=== PATIENT | male | born 1990 | race Caucasian/White ===

== ENCOUNTER 2023-04-13 18:28 | Inpatient (IN) | payer SELFPAY ==
[2023-04-13] MEDS ORDERED: Ondansetron PF 4 MG/2 ML Vial ONE (19:35)
[2023-04-13 20:06] LABS: #Eosinphils 0.1 10x3/uL (0.0-0.5); #Monocytes 1.2 10x3/uL (0.0-1.1); #Neutrophils 12.2 10x3/uL (1.5-8.4); %Basophils 0.1 % (0.0-2.0); %Eosinophils 0.6 % (0.0-6.0); %Monocytes 8.1 % (0.0-10.0); %Neutrophils 83.7 % (40.0-75.0); Hemoglobin 16.7 g/dL (13.5-17.5); Mean Corpuscular HGB CONC 34.7 g/dL (32.0-36.0); Mean Corpuscular Hemoglobin 30.7 pg (27.0-33.0); Mean Corpuscular Volume 88.4 fl (81.2-95.1); Mean Platelet Volume 10.3 fl (7.4-10.4); Platelet Count 224 10x3/uL (150-450); RBC Distribution Width 13.1 % (11.5-14.5); Red Blood Cell (RBC) Count 5.44 10x6/uL (4.32-5.72); White Blood Cell (WBC) Count 14.5 10x3/uL (3.5-10.5)
[2023-04-13 20:50] LABS: ALT (SGPT) 50 U/L (8-55); AST (SGOT) 182 U/L (5-34); Albumin 4.8 g/dL (3.5-5.0); Alkaline Phosphatase 74 U/L (40-110); Anion Gap 23 mmol/L (10-20); BUN (Urea Nitrogen) 23 mg/dL (8.9-20.6); Bilirubin, Total 1.1 mg/dL (0.2-1.2); Calc. Creatinine Clearance 0 mL/min (70-130); Calcium 9.4 mg/dL (7.8-10.44); Carbon Dioxide 17 mmol/L (22-29); Chloride 104 mmol/L (98-107); Estimated GFR 28; Globulin 3.6 g/dL (2.4-3.5); Glucose 106 mg/dL (70-105); Lipase 26 U/L (8-78); Magnesium 2.2 mg/dL (1.6-2.6); Potassium 4.7 mmol/L (3.5-5.1); Protein, Total 8.4 g/dL (6.0-8.3); Sodium 139 mmol/L (136-145)
[2023-04-13 21:02] LABS: CK (CPK) 13792 U/L (30-200)
[2023-04-13 23:10] LABS: Anion Gap 19 mmol/L (10-20); BUN (Urea Nitrogen) 23 mg/dL (8.9-20.6); Calc. Creatinine Clearance 0 mL/min (70-130); Calcium 8.7 mg/dL (7.8-10.44); Carbon Dioxide 20 mmol/L (22-29); Chloride 103 mmol/L (98-107); Estimated GFR 34; Glucose 103 mg/dL (70-105); Potassium 5.1 mmol/L (3.5-5.1); Sodium 137 mmol/L (136-145)
[2023-04-13 23:32] LABS: CK (CPK) 11554 U/L (30-200)
[2023-04-13] MEDS ORDERED: Acetaminophen 325 MG TAB PO PRN (23:48)
[2023-04-13] MEDS ORDERED: Zolpidem Tartrate 5 MG TAB PO PRN (23:48)
[2023-04-13] MEDS ORDERED: Calcium Carbonate 500 MG ChewTAB PO PRN (23:48)
[2023-04-13] MEDS ORDERED: Senokot S 8.6-50 MG TAB PO PRN (23:48)
[2023-04-13] MEDS ORDERED: Guaifenesin DM 100-10/5 ML UDCUP PO PRN (23:48)
[2023-04-13] MEDS ORDERED: Ondansetron PF 4 MG/2 ML Vial IVP PRN (23:48)
[2023-04-14 01:27] VITALS: BMI 24.4
[2023-04-14 04:09] LABS: #Monocytes 1.3 10x3/uL (0.0-1.1); #Neutrophils 10.2 10x3/uL (1.5-8.4); %Basophils 0.2 % (0.0-2.0); %Eosinophils 0.1 % (0.0-6.0); %Lymphocytes 16.6 % (18.0-47.0); %Monocytes 9.3 % (0.0-10.0); %Neutrophils 73.4 % (40.0-75.0); Hemoglobin 15.7 g/dL (13.5-17.5); Mean Corpuscular HGB CONC 33.8 g/dL (32.0-36.0); Mean Corpuscular Hemoglobin 30.4 pg (27.0-33.0); Mean Corpuscular Volume 90.1 fl (81.2-95.1); Mean Platelet Volume 10.4 fl (7.4-10.4); Platelet Count 197 10x3/uL (150-450); RBC Distribution Width 12.9 % (11.5-14.5); Red Blood Cell (RBC) Count 5.16 10x6/uL (4.32-5.72); White Blood Cell (WBC) Count 13.9 10x3/uL (3.5-10.5)
[2023-04-14 04:30] LABS: ALT (SGPT) 47 U/L (8-55); AST (SGOT) 178 U/L (5-34); Albumin 4.3 g/dL (3.5-5.0); Alkaline Phosphatase 68 U/L (40-110); Bilirubin, Direct 0.3 mg/dL (0.1-0.3); Protein, Total 7.4 g/dL (6.0-8.3)
[2023-04-14 04:32] LABS: Anion Gap 18 mmol/L (10-20); BUN (Urea Nitrogen) 24 mg/dL (8.9-20.6); Calc. Creatinine Clearance 66 mL/min (70-130); Carbon Dioxide 21 mmol/L (22-29); Chloride 103 mmol/L (98-107); Estimated GFR 43; Glucose 77 mg/dL (70-105); Potassium 4.7 mmol/L (3.5-5.1); Sodium 137 mmol/L (136-145)
[2023-04-14 04:49] LABS: CK (CPK) 12056 U/L (30-200)
[2023-04-14] MEDS: Sodium Chloride 0.9% 1,000 ML IV SCH ×4 (08:26→22:35)
[2023-04-14] MEDS ORDERED: Loperamide HCl 2 MG CAP PO PRN (10:30)
[2023-04-14] MEDS ORDERED: Polyethylene Glycol 3350 17 GM Packet PO PRN (10:30)
[2023-04-14 12:29] LABS: Bilirubin Neg (Negative); Blood, Urine 150 (Negative); Clarity Clear (Clear); Glucose, Urine (Dipstick) Normal (Negative); Ketone, Urine Negative (Negative); Leukocyte Negative (Negative); Nitrite Negative (Negative); Protein, Urine (Dipstick) 30 mg/dl (Neg-Trace); Urobilinogen Normal mg/dL (Less than 2)
[2023-04-14 12:39] LABS: Amphetamine Detected (NotDetected); Barbiturates Screen Not Detected (NotDetected); Benzodiazepine Screen Not Detected (NotDetected); Cocaine Metabolite Screen Not Detected (NotDetected); Methadone Not Detected (NotDetected); Methamphetamine Not Detected (NotDetected); Opiate Screen Not Detected (NotDetected); Oxycodone Screen Not Detected (NotDetected); Phencyclidine (PCP) Not Detected (NotDetected); THC/Cannabinoid Screen Not Detected (NotDetected); Tricyclic Screen Not Detected (NotDetected)
[2023-04-14 12:45] LABS: Bacteria/HPF Rare-Few HPF (None Seen); RBC/HPF 0-3 HPF (0-3); Squamous Epithelial 0-3 HPF (0-3); WBC/HPF 0-3 HPF (0-3)
[2023-04-15 04:15] LABS: CK (CPK) 7424 U/L (30-200)
[2023-04-15 04:16] LABS: Anion Gap 15 mmol/L (10-20); BUN (Urea Nitrogen) 17 mg/dL (8.9-20.6); Calc. Creatinine Clearance 142 mL/min (70-130); Calcium 8.2 mg/dL (7.8-10.44); Carbon Dioxide 20 mmol/L (22-29); Chloride 107 mmol/L (98-107); Estimated GFR 108; Glucose 88 mg/dL (70-105); Potassium 4.2 mmol/L (3.5-5.1); Sodium 138 mmol/L (136-145)
[2023-04-15] MEDS: Sodium Chloride 0.9% 1,000 ML IV SCH ×2 (05:19→11:52)
[2023-04-15 09:04] VITALS: TEMP 97.8
[2023-04-15 16:06] VITALS: BP 136/78
== END 2023-04-15 16:50 | disposition left against medical advice (07) | DRG 683 ==
LOC: CSHERS 18:28 → CSHERHOLD 23:48 → CSHICU 04-14 08:38
PROVIDERS: ADMIT Student in an Organized Health Care Education/Training Program; ATTEND Hospitalist
DX: N17.9 Acute kidney failure, unspecified (principal); M62.82 Rhabdomyolysis; T67.9XXA Effect of heat and light, unspecified, initial encounter; E86.0 Dehydration; F17.220 Nicotine dependence, chewing tobacco, uncomplicated; F90.9 Attention-deficit hyperactivity disorder, unspecified type; Z90.49 Acquired absence of other specified parts of digestive tract; Z82.49 Family history of ischemic heart disease and other diseases of the circulatory system; Z88.2 Allergy status to sulfonamides; Z91.011 Allergy to milk products; R19.7 Diarrhea, unspecified
CPT/HCPCS: 36415; 80048; 80053; 80076; 80306; 81001; 82550; 83690; 83735; 85025; J2405; J7050